=== PATIENT | male | born 1930 | race Caucasian/White ===

== ENCOUNTER 2018-02-24 13:21 | Inpatient (IN) | payer OTHER ==
[~2018-02-24] VITALS: Ht 170.2 cm; Wt 65.1 kg
--- NOTE | ~2018-02-24 | EKG ---
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 : 1930 Requested By: King Rowland Order Number: [id number] MD: Modesto Neves Measurements Intervals [place] Rate: 82 P: 45 [place]: 184 QRS: 77 QRSD: 104 T: 67 QT: 402 QTc: 470 Interpretive Statements Sinus rhythm No significant abnormality Compared to ECG 12/12/2015 17:34:12 No significant change was found Electronically Signed On 02-24-2018 15:56:47 CDT by Modesto Neves [email or web address] <ELECTRONICALLY SIGNED> By: Modesto Neves MD, [facility] 02/24/18 1556 1422 1422 Modesto Neves MD, [facility] /EPI
--- NOTE | ~2018-02-24 | O ---
[facility] [place] [address] OPERATIVE REPORT Name: GAVI OATES Room #: 403-P [facility] IN M.R.#: [id number] Admission: 02/24/18 Attend Phys: Dale Harris MD Discharge: Date of : [birth year] Report #: [id number] THIS REPORT FOR: //name// CC: Dale Moreno PREOPERATIVE DIAGNOSIS: Right intertrochanteric femur fracture, minimally displaced. POSTOPERATIVE DIAGNOSIS: Right intertrochanteric femur fracture, minimally displaced. PROCEDURE PERFORMED: Intramedullary nailing of right hip intertrochanteric femur fracture. SURGEON: Abraham Whitlock MD. ANESTHESIA: General. FLUIDS: 800 mL crystalloid. ESTIMATED BLOOD LOSS: Approximately 50 mL. IMPLANTS UTILIZED: Synthes TFN nail, 11 x 170 mm, with 100 mm helical blade, 40 mm distal locking screw. DESCRIPTION OF PROCEDURE: After proper identification of the patient and operative site in preoperative holding area, the operative site was signed by myself. The patient was cleared from medical standpoint, elected to proceed with the above. The patient was brought back to the operative suite after induction of satisfactory general anesthesia, was carefully positioned on the fracture table. Well-padded boot system was utilized to support the right lower extremity, and the left lower extremity was supported in a well leg agosto. The patient was carefully positioned. Care was taken to position the head and neck carefully as well. His hip fracture position was checked in the AP and lateral planes and deemed to be in satisfactory position. Hip and thigh were sterilely prepped and draped in usual manner. Final skin draping was with an Ioban isolation drape. An incision proximal to the greater trochanter was planned. Skin was incised sharply. Full thickness skin flaps were developed. The fascia was incised longitudinally. An insertional was placed about the tip of the greater trochanter and carefully advanced into position. The patient had a very good bone quality. A long guidewire was then inserted down the intramedullary canal. The femur was then reamed due to the good cortices noted on the radiographs up to a size 12 mm where there was good cortical contact. An 11 mm nail was chosen proximally. This was reamed to a 17 mm to accommodate a 17 mm aspect of the nail. The implant was carefully impacted into position. An additional more distally based incision was created so that helical blade drill [address] [address] OPERATIVE REPORT Name: GAVI OATES Room #: 403-P [facility] IN ..#: [id number] Admission: 02/24/18 Attend Phys: Dale Harris MD Discharge: Date of : [birth year] Report #: [id number] sleeves could be advanced to the lateral cortex of the femur. A guidewire was inserted into the femoral head while checking in the AP and lateral planes. It was deemed to be in satisfactory position. It measured 100 mm. The outer cortex was reamed and then due to the very good bone quality, the step drill was utilized. 100 mm helical blade was carefully impacted into position. Proximal locking screw was tightened. This was then compressed across the fracture site. Next, through a separate more distally based incision, a 40 mm helical blade distal locking screw was inserted. It had excellent purchase. Final implant images were taken in the AP and lateral planes fracture, and hardware was deemed to be in satisfactory position. Wounds were thoroughly irrigated with normal saline. 0 Vicryl was used to close the fascial layer, 2-0 Vicryl for subcutaneous tissues, final skin closure was with raven. Sterile dressing was applied. At time of dictation, the patient was still in the operative suite with anticipated discharge to recovery room in stable condition. <ELECTRONICALLY SIGNED> By: Abraham Whitlock MD 02/26/18 1255 1534 1631 Abraham Whitlock MD /nt
--- NOTE | ~2018-02-24 | HC ---
[facility] [place] [address] CONSULTATION Name: GAVI OATES Room #: 403-P ADM IN M.R.#: [id number] Admission: 02/24/18 Attend Phys: Dale Harris MD Discharge: Date of : [birth year] Report #: [id number] THIS REPORT FOR: //name// CC: Dale Moreno CHIEF COMPLAINT: Right hip pain. HISTORY OF PRESENT ILLNESS: The patient is a very pleasant 87-year-old gentleman seen today for evaluation of his right hip. The patient reports that he went outside his home, tripped on a crack in a sidewalk and fell on his right side. He was unable to ambulate afterwards. He reports a history of two falls within the last few months, the last one was earlier this year when he tripped and fell on some ice. He does not recall any significant or long lasting pain following his first trip and fall. The patient ambulates with a walker. He denies loss of consciousness or other injuries. PAST MEDICAL HISTORY: Significant for peripheral vascular disease. He has had an aortic aneurysm repair in 1999. He has had a history of embolization in the lower extremities resulting in bilateral toe and forefoot amputations, cholecystectomy, left eye cataract, right eye blindness, colon resection in the , peripheral vascular disease, chronic kidney disease, BPH, insulin-dependent diabetes, hyperlipidemia, pneumonia, 4-vessel CABG, hard of hearing with hearing aids, lymphoma in 03/2015 treated with chemotherapy, history of a left shoulder injury in 2014, lumbar compression fractures and C. diff in 12/2015. CURRENT MEDICATIONS: Please see current MAR. ALLERGIES: GABAPENTIN. PHYSICAL EXAMINATION: The patient is alert, oriented, answering questions appropriately. Most recent vitals: Temperature 36.6, pulse 82, respirations 18, BP 93/46 and pulse ox 100%. Examination reveals right eye blindness. He denies tenderness about the neck or shoulders. He has a large area of ecchymosis about the proximal forearm and elbow. He is able to actively move the hands, wrists and elbows without resistance. He reports intact sensation, motor is intact. Compartments are otherwise soft. Pelvis is stable to AP and lateral compression. He has tenderness in the right groin limited range of motion due to pain, lies in a slightly flexed posture on the right hip. Left hip is nontender with gentle range of motion. He is nontender about the right and left knees, nontender about the legs and ankle. He has evidence of a forefoot amputation bilaterally with well-healed incisions. Skin is otherwise intact. Diminished pulses are noted in the lower extremities. RADIOGRAPHS: Hip and pelvis films reveal an intertrochanteric right femur [address] [address] CONSULTATION Name: GAVI OATES Roberto Room #: 403-P [facility] IN M.R.#: [id number] Admission: 02/24/18 Attend Phys: Dale Harris MD Discharge: Date of : [birth year] Report #: [id number] fracture with mild displacement. Peripheral vascular disease was noted. LABORATORY DATA: Reviewed. Current hemoglobin is 8.4. IMPRESSION: 1. Right hip intertrochanteric femur fracture, status post fall. 2. Multiple medical comorbidities. PLAN: We reviewed potential treatment options for the patient's right hip fracture. We have discussed the risks, benefits, alternatives and potential complications of treatment. The patient would like to proceed with an intramedullary nailing of his right hip when he is cleared from medical standpoint. Hopefully, this can be performed later today. The patient has remained n.p.o. Questions were encouraged, all were answered. <ELECTRONICALLY SIGNED> By: Abraham Whitlock MD 02/25/18 1539 0809 0903 Arbaham Whitlock MD /nt
[2018-02-24 13:21] VITALS: BP 114/57
[~2018-02-24 13:21] MED LIST: ACETYLCYST200 MG/1 M; ADULT LOW DOSE81 MG; ADULT LOW DOSE81 MG PO; ADVAIR HFA115 MCG/21 INH; ALLOPURINOL 30300 M1 PO; APAP650 PO; ARTIFICIAL TEA1 EACH OP; ASPIR-LOW81 MG PO; AZITHROMYCIN 2250 MG PO; BACTRIM DS TAB1 EACH PO; BAYER CHEWABLE81 MG PO; CARVEDILOL6.25 MG PO; CEFAZ1 ADV; CEFTIN 250 MG250 MG PO; CEPACOL SORE T1 EAC8 PO; CILOSTAZOL 100100 MG PO; CIPRO250 M1 OR; COREG PO; DELTASONE20 MG PO; DOXYCYCLINE 10100 M1 PO; FENTANYL PA25 MCG/HR TRANSDERM; FERROUS SULFAT325 M1 OR; FINASTERIDE5 MG OR; FINASTERIDE5 MG PO; FLOMAX; FLOMAX0.4 MG PO; HYDROCODONE-APA1 TA1 PO; IRON325 PO; KEFLEX500 M1 PO; LANTUS; LANTUS SOL100 UNIT/1; LANTUS SUBQ; LANTUS100 UNIT/M SUBQ; LANTUSSOLASTAR SUBQ; LEVAQUIN 500 M500 M1 PO; LEVEMIR SUBQ; LIDODERM 5%1 PATC1 TRANSDERM; LISINOPRIL10 MG PO; LISINOPRIL2.5 MG; MULTIVITAMINS; MULTIVITAMINS PO; NABUMETONE 750750 M1 PO; NEULASTA6 MG/0.6 M SUBQ; NEXIUM40 MG; NEXIUM40 MG PO; NOVOLOG100 UNIT/1; NOVOLOG100 UNIT/1 SUBQ; ONE DAILY MULT1 EAC2 PO; PLETAL; PREDNISONE 5 MG5 M1 PO; PROSCAR 5MG TABL5 MG PO; REFRESH CELLUVI1 APP OPHTHALMIC; SILVADENE20 GM; SIMVASTATIN20 MG; SIMVASTATIN20 MG PO; TAMSULOSIN HCL0.4 MG OR; TYLENOL325 MG PO; VANCOMYCIN HCL125 MG PO; VANCOMYCIN PO; VICKS INHALER50 MG NASAL; VITAMIN B COMP1 EACH; VITAMIN B COMP1 EACH PO; VITAMIN D1000 UNI1 PO; ZOCOR20 MG PO; [UNRECOGNIZED DRUG - REMARK]
[2018-02-24 14:50] LABS: ABSOLUTE NEUTROPHILS 3.8 thou/uL (1.4-8.2); BASOPHILS 0.8 % (0.0-2.0); EOSINOPHILS 8.5 % (0.0-3.0); HEMATOCRIT 29.1 % (42.0-52.0); LYMPHOCYTES 19.6 % (24.0-44.0); MCH 33.1 pg (26.0-34.0); MCHC 34.4 g/dL (28.0-37.0); MCV 96.4 fL (80.0-100.0); MONOCYTES 6.4 % (1.0-8.0); PLATELET COUNT 124 thou/uL (150-400); POLYS 64.7 % (36.0-66.0); RBC 3.02 mil/uL (4.50-6.00); RDW 15.3 % (10.5-14.5); WBC 5.9 thou/uL (4.0-11.0)
[2018-02-24 14:58] LABS: CREATININE 1.5 mg/dL (0.7-1.3); POTASSIUM 4.4 mmol/L (3.5-5.1)
[2018-02-24 15:12] VITALS: BP 114/57
[2018-02-24 15:55] VITALS: BP 136/71
[2018-02-24 15:57] VITALS: BP 124/78
[2018-02-24 19:24] VITALS: BP 113/47
[2018-02-25] VITALS (8 sets, daily range): BP systolic 93–120; BP diastolic 46–52
[2018-02-25 05:52] LABS: HEMATOCRIT 24.1 % (42.0-52.0); HEMOGLOBIN 8.4 gm/dL (14.0-18.0); MCH 33.6 pg (26.0-34.0); MCHC 34.7 g/dL (28.0-37.0); MCV 96.7 fL (80.0-100.0); RBC 2.49 mil/uL (4.50-6.00); RDW 15.6 % (10.5-14.5); WBC 6.7 thou/uL (4.0-11.0)
[2018-02-25 06:01] LABS: CALCIUM 8.7 mg/dL (8.5-10.1); CREATININE 1.5 mg/dL (0.7-1.3); POTASSIUM 4.6 mmol/L (3.5-5.1)
[2018-02-25 15:59] LABS: HEMATOCRIT 23.5 % (42.0-52.0); HEMOGLOBIN 7.9 gm/dL (14.0-18.0)
[2018-02-26 02:00] VITALS: BP 123/43
[2018-02-26 05:04] VITALS: BP 111/34; BP 118/73; BP 162/85
[2018-02-26 07:50] VITALS: BP 116/49
[2018-02-26 10:42] LABS: TSH 3.494 uIU/mL (0.358-3.740)
[2018-02-26 16:45] VITALS: BP 98/45
[2018-02-26 19:26] VITALS: BP 103/40
[2018-02-27 04:00] VITALS: BP 93/62
[2018-02-27 08:54] VITALS: BP 104/62
[2018-02-27 09:30] VITALS: BP 104/62
== END 2018-02-27 15:55 | DRG 480 ==
LOC: ER 13:21 → 4N 14:37 → EROBS 14:37 → 4N 15:24
PROVIDERS: Anesthesiology; Hospitalist; Internal Medicine Geriatric Medicine; Nurse Practitioner
PROC: 0QH606Z Insertion of Intramedullary Internal Fixation Device into Right Upper Femur, Open Approach (ICD-10-PCS; principal; 2018-02-24)
DX: S72.141A Displaced intertrochanteric fracture of right femur, initial encounter for closed fracture (principal); E43 Unspecified severe protein-calorie malnutrition; N18.9 Chronic kidney disease, unspecified; N40.0 Benign prostatic hyperplasia without lower urinary tract symptoms; E78.5 Hyperlipidemia, unspecified; I25.10 Atherosclerotic heart disease of native coronary artery without angina pectoris; I71.4 Abdominal aortic aneurysm, without rupture; I12.9 Hypertensive chronic kidney disease with stage 1 through stage 4 chronic kidney disease, or unspecified chronic kidney disease; E11.22 Type 2 diabetes mellitus with diabetic chronic kidney disease; M62.84 Sarcopenia; H54.61 Unqualified visual loss, right eye, normal vision left eye; D64.9 Anemia, unspecified; R41.0 Disorientation, unspecified; E11.51 Type 2 diabetes mellitus with diabetic peripheral angiopathy without gangrene; Z90.49 Acquired absence of other specified parts of digestive tract; Z89.422 Acquired absence of other left toe(s); Z89.421 Acquired absence of other right toe(s); Z98.42 Cataract extraction status, left eye; Z79.4 Long term (current) use of insulin; Z95.1 Presence of aortocoronary bypass graft; Z89.432 Acquired absence of left foot; Z89.431 Acquired absence of right foot; Z87.891 Personal history of nicotine dependence; Z88.8 Allergy status to other drugs, medicaments and biological substances; Z79.82 Long term (current) use of aspirin; Z79.899 Other long term (current) drug therapy; Z68.22 Body mass index [BMI] 22.0-22.9, adult; W01.0XXA Fall on same level from slipping, tripping and stumbling without subsequent striking against object, initial encounter; Y93.89 Activity, other specified; Y92.89 Other specified places as the place of occurrence of the external cause; Y99.8 Other external cause status
CPT/HCPCS: 10790; 50010; 50101; 50133; 50386; 50635; 51412; 51538; 51817; 52145; 52146; 56525; 57092; 62110; 62900; 70005

== ENCOUNTER 2018-02-27 12:54 | Inpatient (IN) | payer OTHER ==
[~2018-02-27] VITALS: Ht 170.2 cm; Wt 61.7 kg
--- NOTE | ~2018-02-27 | PLAN ---
[facility] [place] [address] REHAB UNIT PLAN OF CARE Name: GAVI OATES Room #: 513-P ADM IN M.R.#: [id number] Admission: 02/27/18 Attend Phys: Jesse Carmen MD Discharge: Date of : [birth year] Report #: [id number] THIS REPORT FOR: //name// CC: Jesse Moreno DATE OF SERVICE: 03/02/2018 SUBJECTIVE: The patient is seen back today in followup. He is in no distress. Last recorded temperature 97.6, pulse 86, respirations 20, blood pressure 128/58. He wanted some adjustment with his bed positioning and I have worked with him on this along with nursing. He has no focal calf swelling. He has had bilateral forefoot amputations. He has modified shoes that he wears. His transfers are min assist with gait min assist 95 feet with a front-wheeled walker. In occupational therapy, lower body dressing is dependent. Upper body dressing is mod assist. Speech therapy has moderate comprehensive deficits. ASSESSMENT: 1. Right intertrochanteric femur fracture status post intramedullary nailing on 02/25/2018. Weightbearing as tolerated. 2. Gait instability. 3. History of falls. 4. Peripheral vascular disease. 5. Coronary artery disease status post previous coronary artery bypass grafting. 6. Type 2 diabetes mellitus. 7. Right eye blindness. 8. Abdominal aortic aneurysm status post prior repair. 9. Chronic suprapubic catheter secondary to benign prostatic hyperplasia and urinary retention. 10. Hypertension. PLAN: The overall plan of care is based on the preadmission screen, post-admission physician evaluation, and information garnered from therapy assessments. 1. Estimated length of stay is probably at least 1-2 weeks pending progress. 2. Medical prognosis is reasonably good. 3. Anticipated interventions include the interdisciplinary acute inpatient rehabilitation program with PT, OT, and speech, rehabilitation nursing assisting regarding medication management, skin care prophylaxis, bowel and bladder issues, and nursing education. Case management is involved as well as the business process consultant physicians and the rehab therapy team. 4. Anticipated functional outcomes would be for the patient to become modified independent with transfers, mobility and ADLs and improvement in cognition, so that he can return back to the home setting. Goal would be for him to be modified independent at least at the walker level. [address] [address] REHAB UNIT PLAN OF CARE Name: GAVI OATES Room #: 513-P [facility] IN .R.#: [id number] Admission: 02/27/18 Attend Phys: Jesse Carmen MD Discharge: Date of : [birth year] Report #: [id number] 5. Discharge destination would be back home with his and son. There are 3 entry steps. 6. Expected therapy by discipline includes PT, OT, and speech 1 hour per day each five days a week throughout the duration of the acute inpatient rehabilitation stay. We may be able to decrease some of the speech therapy and increase PT and OT, but we will have to see how things go. ADDENDUM The patient missed some therapies on 02/28/2018 secondary to blood transfusion. <ELECTRONICALLY SIGNED> By: Jesse Carmen MD 03/03/18 1440 0905 0012 Jesse Carmen MD /PMT
--- NOTE | ~2018-02-27 | H ---
[facility] [place] [address] HISTORY AND PHYSICAL Name: GAVI OATES Room #: PRE IN [facility]#: [id number] Admission: Attend Phys: Jesse Carmen MD Discharge: Date of : [birth year] Report #: [id number] THIS REPORT FOR: //name// CC: Jesse Moreno HISTORY OF PRESENT ILLNESS: This is an 87-year-old gentleman who initially presented to [facility] after tripping on the sidewalk outside of his house and falling onto his right side with immediate pain. In the Emergency Department, he was found to have a right intertrochanteric femur fracture and he underwent IM nailing by Orthopedics on 02/25/2018. Postoperatively, he is weightbearing as tolerated. He did have some mild postop delirium that is mostly resolved. Due to his functional mobility limitations, he has now been admitted to inpatient rehab for further strengthening therapies. Today, he reports adequate pain control in the right hip and leg. He denies any other new complaints. Premorbidly, the patient was independent for all self cares. He premorbidly utilized a cane when out of the house for longer distances. PAST MEDICAL HISTORY: PVD, right eye blindness, CAD, CKD, BPH, diabetes, insulin-dependent, hyperlipidemia, hypertension, lymphoma treated in 2004, left shoulder injury in 2014, lumbar compression fracture, C. diff in 2015. PAST SURGICAL HISTORY: Bilateral toes and forefoot amputated, status post embolization in the lower extremities, laser eye surgery, colon resection, gallbladder removal, CABG x 4. HABITS: He quit smoking greater than one year ago. No recent alcohol use. Denies illicit drug abuse. SOCIAL HISTORY: As mentioned above. Lives in a house with his and son who is disabled from RA. There are 3 entry stairs, 0 stairs inside, all living is on 1 level. Premorbidly, used a cane for longer distances outside of the house. CODE STATUS: Full code. ALLERGIES: GABAPENTIN. CURRENT MEDICATIONS: B12 1000 mcg IM daily, Zofran 4 mg q. 6 hours p.r.n., aspirin 81 mg daily, morphine 2 mg every 1 hour as needed, senna 2 tablets at night as needed, Lantus 20 units subq at bedtime, dextrose and glucagon p.r.n. low blood sugar, [place] 5/325 one tablet every 4 hours as needed, insulin lispro moderate sliding scale a.c. and at bedtime subq. REVIEW OF SYSTEMS: Remainder of his 12-point review of systems negative except as listed in the HPI. PHYSICAL EXAMINATION: [facility] [address] [place] [address] HISTORY AND PHYSICAL Name: GAVI OATES Roberto Room #: PRE IN M.R.#: [id number] Admission: Attend Phys: Jesse Carmen MD Discharge: Date of : [birth year] Report #: [id number] VITAL SIGNS: Blood pressure 104/62, respirations 20, pulse of 80, temperature 36.8. He is 97% oxygen on room air. GENERAL: He is awake, alert, oriented to person, place and situation. He is in no acute distress. He is on room air. HEENT: Head is normocephalic. EOMs are intact. CHEST: Lungs are clear to auscultation bilaterally. No crackles. CARDIAC: Regular rate and rhythm. S1, S2. ABDOMEN: Bowel sounds are positive. Soft, nontender, nondistended. GENITOURINARY: He has a suprapubic catheter draining clear yellow urine output. EXTREMITIES: He has a right hip dressing clean, dry and intact. He has trace right lower extremity edema. Negative Homans sign. He has bilateral forefoot and toe amputation. Left lower extremity strength 4/5 grossly. Functional range of motion intact right upper extremity. Left upper extremity range of motion is limited. He has arthritic changes noted in bilateral hands. Sit to stand, he is max assist; mod assist for 30 feet with walker; toilet transfers, max assist; bed mobility, max assist. NEUROLOGIC: Cranial nerves 2-12 grossly intact. Sensation equal bilaterally. ASSESSMENT: 1. Right intertrochanteric femur fracture, status post intramedullary nailing on 02/25/2018. Weightbearing as tolerated. 2. Gait instability. 3. History of falls. 4. Peripheral vascular disease. 5. Coronary artery disease status post previous coronary artery bypass graft. 6. Type 2 diabetes. 7. Right eye blindness. 8. Abdominal aortic aneurysm status post prior repair. 9. Chronic suprapubic catheter secondary to benign prostatic hypertrophy and urine retention. 10. Hypertension. PLAN: The patient has been admitted to inpatient rehab for PT and OT therapies. As mentioned above, he is weightbearing as tolerated. We will try to maximize his independence in functional mobility so that he can return home independent. His orthopedic surgeon and Hospitalist Medicine will continue to follow for any acute medical issues that may arise. He will have CBC and BMP checked in the morning. He will continue on incentive spirometry for prophylaxis along with SCDs. By: 1448 1551 CLEMENTINE Espino /nt
--- NOTE | ~2018-02-27 | HC ---
[facility] [place] [address] CONSULTATION Name: GAVI OATES Room #: 513-P [facility] IN M.R.#: [id number] Admission: 02/27/18 Attend Phys: Jesse Carmen MD Discharge: Date of : [birth year] Report #: [id number] THIS REPORT FOR: //name// CC: Jesse Carmen [facility] DATE OF SERVICE: 03/05/2018 ATTENDING PHYSICIAN: Jesse Carmen MD. SITE PHYSICIAN: Cornelio De La Garza, PhD. CLINICAL PRESENTATION: The patient is an 87-year-old male admitted to the rehabilitation unit at [facility] for comprehensive inpatient rehabilitation program to improve functional mobility, activities of daily living and self-care and mental status secondary to deficits from a right intertrochanteric femur fracture. He is status post intramedullary nailing on 02/25/2018. The patient reportedly was walking outside his home when he tripped and fell on his right side, sustaining the injury. His premorbid history also includes gait instability, history of falls, peripheral vascular disease, coronary artery disease status post coronary artery bypass graft, type 2 diabetes, right eye blindness and poor visual acuity in the left eye, abdominal aortic aneurysm status post repair, chronic suprapubic catheter secondary to benign prostatic hypertrophy with urinary retention and hypertension. A complete description of his medical condition and history can be found in his medical record. Neuropsychological consultation was requested to provide assistance in the assessment of cognitive and emotional status and to provide recommendations and services. Prior to this most recent medical event, he was living at home with his . This is his second marriage. Environmental stress includes a stepson with rheumatoid arthritis that is living at the home and a stepdaughter whom is being treated for cancer. The patient has 2 biological and 4 stepchildren. This is his second marriage. The patient is a high school graduate. 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 TECHNIQUES UTILIZED: Clinical interview, review of medical records, staff consultation and behavioral observation, mini mental status exam 2 brief version and MMSE 2 standard version. EXAMINATION FINDINGS: The patient was alert and cooperative with the assessment. He accurately described events surrounding his admission. There is no evidence of aphasia. His thoughts are logical and goal oriented. There is no evidence of thought disorder. He does not report auditory or visual hallucinations. There is no suicidal ideation. His affect was pleasant and [facility] [address] [place] [address] CONSULTATION Name: GAVI OATES Room #: 513-P [facility] IN .R.#: [id number] Admission: 02/27/18 Attend Phys: Jesse Carmen MD Discharge: Date of : [birth year] Report #: [id number] engaging. His sleep is described as inconsistent. Appetite appears good. Variability in memory and word finding are reported. He has a very good recall of remote events. However, day-to-day short term memory is diminished. Word finding is poor. He describes subjective anxiety to the extent of concern and worry about his and health of his children. His performance on the MMSE 2 brief version is within normal limits with a raw score of 14 of 16. He is 3/3 for initial registration, 5/5 for orientation to time and place. He was 1/3 for immediate recall of 3 items after a brief time delay and distraction. The entirety of the standard version of the MMSE 2 was not administered because of severe deficits in vision. The patient does show adequate repetition. He was 3/5 for serial 7's. Variability in attention and concentration is suspected. 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 RECOMMENDATIONS: The patient is concerned about the wellbeing of his family. Mild degree of anxiety is suggested. He does not report feeling depressed. Cognitive ability is mildly impaired, however, more extreme deficits may be noted during more complex activity. The patient will benefit from an environment that is a structure to accommodate for visual deficits. The patient and his may benefit from environmental evaluation upon his return home to clarify potential hazards. He will need assistance with the management of medication and nutrition upon return home. His mood is adequately upbeat and optimistic and once in a more familiar environment, will likely improve. Thank you very much for allowing me to provide the consultation on this patient. <ELECTRONICALLY SIGNED> By: Cornelio De La Garza, PhD 03/07/18 1550 1759 [id number] Cornelio De La Garza, PhD /nt
--- NOTE | ~2018-02-27 | H ---
[facility] [place] [address] HISTORY AND PHYSICAL Name: GAVI OATES Room #: 513-P ADM IN M.R.#: [id number] Admission: 02/27/18 Attend Phys: Jesse Carmen MD Discharge: Date of : [birth year] Report #: [id number] THIS REPORT FOR: //name// CC: [facility] DATE OF SERVICE: 02/27/2018 HISTORY AND PHYSICAL ADDENDUM/POSTADMISSION PHYSICIAN EVALUATION HISTORY OF PRESENT ILLNESS: I agree with the full history and physical dictation as per nurse practitioner, Swati Yeager. The patient tripped outside his house and fell sustaining a right intertrochanteric femur fracture, underwent intramedullary nailing on 02/25/2018. He is allowed weightbearing as tolerated. He has multiple medical comorbidities and is being admitted for acute in-hospital inpatient rehabilitation. Please see the social history, medication list, past medical history. REVIEW OF SYSTEMS: He was seen earlier, but denied any specific pain complaints other than that expected with his hip. PHYSICAL EXAMINATION: GENERAL: The patient was seen earlier and was somewhat groggy, in no distress. VITAL SIGNS: Last recorded vitals, temperature 36.8, pulse 89, respirations 20, blood pressure 105/34. CHEST: Clear. CARDIAC: Regular rate and rhythm. MUSCULOSKELETAL: Hip area was dressed. No focal calf swelling. Trace right lower extremity edema. Left lower extremity strength is probably a grade 4-, right lower extremity was somewhat difficult with his discomfort, probably 3+. He is max assist for basic transfers and can ambulate a short distance with a walker with mod assist. ASSESSMENT: 1. Right intertrochanteric femur fracture, status post intramedullary nailing on 02/25/2018. Weightbearing as tolerated. 2. Gait instability. 3. History of falls. 4. Peripheral vascular disease. 5. Coronary artery disease, status post previous coronary bypass grafting. 6. Diabetes mellitus type 2. 7. Right eye blindness. 8. Abdominal aortic aneurysmal repair. 9. Chronic suprapubic catheter secondary to benign prostatic hypertrophy and urinary retention. [facility] [address] [place] [address] HISTORY AND PHYSICAL Name: ИВАНGAVI JONES Room #: 513-P [facility] [place] .R.#: [id number] Admission: 02/27/18 Attend Phys: Jesse Carmen MD Discharge: Date of : [birth year] Report #: [id number] 10. Hypertension. PLAN: The patient is admitted for acute in-hospital inpatient rehabilitation. Internal medicine physician workday consultant will be asked to assist regarding monitoring the multiple medical comorbidities as noted above. From a post-admission physician evaluation perspective, there are no relevant changes since the preadmission screening. Please see the above review of prior and current medical and functional conditions and comorbidities. Please see the patient's previous and current functional status. As far as risk of complications, the patient has multiple medical comorbidities as noted above. The initial plan of care involves the interdisciplinary acute inpatient rehabilitation program with the goal of maximizing the patient's functional independence, so that he can hopefully return back to his prior living situation. Prognosis is reasonably good with estimated length of stay probably a good 2 to 3 weeks. Potential barriers would include the patient's multiple medical comorbidities and decreased functional status. The goal would be to maximize his independence with mobility and ADLs at a walker level. Goal is to return back to the house with his and his son. Potential barriers would include his multiple medical comorbidities and decreased functional status. He has also had bilateral toes and forefoot amputation and has had embolization of his lower extremities. The patient meets diagnostic criteria for an acute in-hospital inpatient rehabilitation stay. He meets the medical necessity criteria and we will have the workday consultant physicians follow along as noted above. He does have the tolerance for the acute inpatient rehabilitation therapy program and has appropriate discharge goals back to the home setting. Please see the nurse practitioner note as noted above as well. <ELECTRONICALLY SIGNED> By: Jesse Carmen MD 03/03/18 [id number] Jesse Carmen MD /nt
[2018-02-27 19:53] VITALS: BP 105/34
[2018-02-28 07:35] VITALS: BP 110/54
[2018-02-28 08:11] LABS: CALCIUM 8.1 mg/dL (8.5-10.1); CREATININE 1.2 mg/dL (0.7-1.3); POTASSIUM 3.9 mmol/L (3.5-5.1)
[2018-02-28 09:33] LABS: RBC 1.52 mil/uL (4.50-6.00)
[2018-02-28 09:35] LABS: MCH 33.4 pg (26.0-34.0); MCHC 34.8 g/dL (28.0-37.0); MCV 96.1 fL (80.0-100.0); RDW 15.5 % (10.5-14.5); WBC 5.1 thou/uL (4.0-11.0)
[2018-02-28 09:36] LABS: HEMATOCRIT 14.6 % (42.0-52.0)
[2018-02-28 09:37] LABS: HEMOGLOBIN 5.1 gm/dL (14.0-18.0)
[2018-02-28 13:07] VITALS: BP 112/62; BP 114/58
[2018-02-28 16:19] LABS: HEMOGLOBIN 6.4 gm/dL (14.0-18.0)
[2018-02-28 16:20] LABS: HEMATOCRIT 18.8 % (42.0-52.0)
[2018-02-28 16:51] VITALS: BP 116/58; BP 118/62
[2018-02-28 20:40] VITALS: BP 123/52
[2018-02-28 22:05] VITALS: BP 118/62; BP 123/52
[2018-03-01 06:17] LABS: HEMATOCRIT 22.2 % (42.0-52.0); HEMOGLOBIN 7.9 gm/dL (14.0-18.0); MCH 31.9 pg (26.0-34.0); MCHC 35.4 g/dL (28.0-37.0); RBC 2.47 mil/uL (4.50-6.00); WBC 5.5 thou/uL (4.0-11.0)
[2018-03-01 06:20] LABS: MCV 90.2 fL (80.0-100.0)
[2018-03-01 06:26] LABS: CALCIUM 8.4 mg/dL (8.5-10.1); CREATININE 1.2 mg/dL (0.7-1.3); POTASSIUM 3.5 mmol/L (3.5-5.1)
[2018-03-01 07:50] VITALS: BP 130/68
[2018-03-01 19:23] VITALS: BP 128/58
[2018-03-02 07:48] VITALS: BP 129/55
[2018-03-02 20:18] VITALS: BP 120/64
[2018-03-03 04:31] LABS: ABSOLUTE NEUTROPHILS 3.6 thou/uL (1.4-8.2); BASOPHILS 0.5 % (0.0-2.0); EOSINOPHILS 9.4 % (0.0-3.0); HEMATOCRIT 23.5 % (42.0-52.0); HEMOGLOBIN 8.2 gm/dL (14.0-18.0); LYMPHOCYTES 23.3 % (24.0-44.0); MCHC 34.7 g/dL (28.0-37.0); MCV 92.4 fL (80.0-100.0); PLATELET COUNT 126 thou/uL (150-400); POLYS 58.8 % (36.0-66.0); RBC 2.55 mil/uL (4.50-6.00); RDW 15.7 % (10.5-14.5); WBC 6.1 thou/uL (4.0-11.0)
[2018-03-03 04:35] LABS: CALCIUM 8.6 mg/dL (8.5-10.1); CREATININE 1.3 mg/dL (0.7-1.3); MAGNESIUM 1.6 mg/dL (1.8-2.4)
[2018-03-03 07:30] VITALS: BP 103/59
[2018-03-03 19:48] VITALS: BP 121/52
[2018-03-04 07:45] VITALS: BP 112/61
[2018-03-04 19:13] VITALS: BP 101/45
[2018-03-05 08:00] VITALS: BP 115/67
[2018-03-05 19:54] VITALS: BP 119/51
[2018-03-06 01:06] LABS: GLYCOHEMOGLOBIN (HGB A1C) 5.3 % (4.8-5.6)
[2018-03-06 04:39] LABS: BASOPHILS 0.8 % (0.0-2.0); EOSINOPHILS 7.7 % (0.0-3.0); HEMATOCRIT 22.2 % (42.0-52.0); HEMOGLOBIN 7.5 gm/dL (14.0-18.0); LYMPHOCYTES 24.4 % (24.0-44.0); MCH 31.4 pg (26.0-34.0); MCHC 33.9 g/dL (28.0-37.0); MCV 92.5 fL (80.0-100.0); MONOCYTES 7.4 % (1.0-8.0); PLATELET COUNT 142 thou/uL (150-400); POLYS 59.7 % (36.0-66.0); RDW 15.4 % (10.5-14.5)
[2018-03-06 04:52] LABS: CALCIUM 8.5 mg/dL (8.5-10.1); CREATININE 1.3 mg/dL (0.7-1.3); MAGNESIUM 1.8 mg/dL (1.8-2.4); POTASSIUM 3.8 mmol/L (3.5-5.1)
[2018-03-06 07:50] VITALS: BP 107/55
[2018-03-06 21:10] VITALS: BP 114/57
[2018-03-07 20:55] VITALS: BP 114/39
[2018-03-08 07:30] VITALS: BP 118/69
[2018-03-08 20:19] VITALS: BP 112/50
[2018-03-09 03:53] LABS: CALCIUM 8.9 mg/dL (8.5-10.1); CREATININE 1.5 mg/dL (0.7-1.3); MAGNESIUM 1.7 mg/dL (1.8-2.4); POTASSIUM 3.8 mmol/L (3.5-5.1)
[2018-03-09 04:04] LABS: ABSOLUTE NEUTROPHILS 4.2 thou/uL (1.4-8.2); BASOPHILS 0.3 % (0.0-2.0); EOSINOPHILS 5.8 % (0.0-3.0); HEMATOCRIT 23.5 % (42.0-52.0); HEMOGLOBIN 8.1 gm/dL (14.0-18.0); MCH 31.6 pg (26.0-34.0); MCHC 34.5 g/dL (28.0-37.0); MCV 91.6 fL (80.0-100.0); MONOCYTES 7.4 % (1.0-8.0); PLATELET COUNT 184 thou/uL (150-400); POLYS 64.5 % (36.0-66.0); RBC 2.57 mil/uL (4.50-6.00); RDW 15.8 % (10.5-14.5); WBC 6.5 thou/uL (4.0-11.0)
[2018-03-09 08:45] VITALS: BP 111/53
[2018-03-09 19:23] VITALS: BP 111/53
[2018-03-10 08:00] VITALS: BP 116/50
[2018-03-10 20:25] VITALS: BP 123/53
[2018-03-11 08:15] VITALS: BP 109/53
[2018-03-11] MEDS ORDERED: TYLENOL325 MG PO (15:18)
[2018-03-11] MEDS ORDERED: VOLTAREN100 GM TOP (15:18)
[2018-03-11] MEDS ORDERED: MIRALAX17 GM PO (15:18)
[2018-03-11] MEDS ORDERED: IRON325 PO (15:18)
[2018-03-11 15:29] VITALS: BP 109/53
[2018-03-11 20:10] VITALS: BP 116/51
[2018-03-12 07:35] VITALS: BP 118/63
[2018-03-12 10:00] VITALS: BP 109/53
== END 2018-03-12 12:00 | disposition home health service (06) | DRG 535 ==
LOC: ENTRNSPT 03-12 11:24 → EDTRNSPTSTS 03-12 11:29
PROVIDERS: Hospitalist; Nurse Practitioner; Nurse Practitioner Family; Physical Medicine & Rehabilitation
PROC: 30233N1 Transfusion of Nonautologous Red Blood Cells into Peripheral Vein, Percutaneous Approach (ICD-10-PCS; principal; 2018-02-28)
DX: S72.141A Displaced intertrochanteric fracture of right femur, initial encounter for closed fracture (principal); J96.01 Acute respiratory failure with hypoxia; D62 Acute posthemorrhagic anemia; N17.9 Acute kidney failure, unspecified; R41.0 Disorientation, unspecified; E11.51 Type 2 diabetes mellitus with diabetic peripheral angiopathy without gangrene; E11.22 Type 2 diabetes mellitus with diabetic chronic kidney disease; N18.9 Chronic kidney disease, unspecified; I25.10 Atherosclerotic heart disease of native coronary artery without angina pectoris; H54.40 Blindness, one eye, unspecified eye; E78.5 Hyperlipidemia, unspecified; I12.9 Hypertensive chronic kidney disease with stage 1 through stage 4 chronic kidney disease, or unspecified chronic kidney disease; J43.2 Centrilobular emphysema; R53.81 Other malaise; R26.9 Unspecified abnormalities of gait and mobility; W01.0XXA Fall on same level from slipping, tripping and stumbling without subsequent striking against object, initial encounter; I71.4 Abdominal aortic aneurysm, without rupture; F41.9 Anxiety disorder, unspecified; N40.1 Benign prostatic hyperplasia with lower urinary tract symptoms; R33.9 Retention of urine, unspecified; D63.1 Anemia in chronic kidney disease; D69.6 Thrombocytopenia, unspecified; K59.00 Constipation, unspecified; J84.10 Pulmonary fibrosis, unspecified; E53.8 Deficiency of other specified B group vitamins; Z79.4 Long term (current) use of insulin; Z87.81 Personal history of (healed) traumatic fracture; Z89.422 Acquired absence of other left toe(s); Z89.421 Acquired absence of other right toe(s); Z90.49 Acquired absence of other specified parts of digestive tract; Z95.1 Presence of aortocoronary bypass graft; Z87.891 Personal history of nicotine dependence; Z79.899 Other long term (current) drug therapy; Z79.82 Long term (current) use of aspirin; Y93.89 Activity, other specified; Y92.89 Other specified places as the place of occurrence of the external cause; Y99.8 Other external cause status; Z85.72 Personal history of non-Hodgkin lymphomas; Z88.8 Allergy status to other drugs, medicaments and biological substances
CPT/HCPCS: 10112

== ENCOUNTER → 2018-05-08 | Outpatient (CLI) | payer OTHER ==
[~2018-05-08] MED LIST changes: +MIRALAX17 GM PO; +VOLTAREN100 GM TOP
== END ==
LOC: NUC 10:48
DX: K21.9 Gastro-esophageal reflux disease without esophagitis (principal); R10.9 Unspecified abdominal pain; R68.81 Early satiety